=== PATIENT | female | born 1960 | race Caucasian/White ===

== ENCOUNTER → 2016-10-12 | Outpatient (CLI) | payer BC ==
--- NOTE | 2016-10-22 14:55 | MR ---
EXAMINATION TYPE: MR brain wo/w con DATE OF EXAM: 10/12/2016 6:05 PM COMPARISON: Outside MRI brain July 25, 2016 HISTORY: Tumor resection f/u TECHNIQUE: Multiplanar, multisequence images of the brain and brainstem is performed without and with IV contras t, utilizing 10 mL intravenous MultiHance . FINDINGS: Diffusion weighted images demonstrate no evidence of a recent infarct or other diffusion ab normality. There is no worrisome extra-axial fluid collection. The ventricular system and cisternal spaces are normal in size and appearance. The brain volume is age appropriate. Surgical changes fro m right frontal craniotomy are redemonstrated. Mild linear dural enhancement at this level remains pr esent. No suspicious new mass or nodular type enhancement is identified. There is persistent vasogeni c edema at level of surgery improved in appearance from outside study with resolution of edema into c orpus callosum and midline shift noted. Focal areas of low-attenuation in the periventricular white m atter are presumed on basis of product of chronic small vessel ischemic change in patient of this age . Midline structures demonstrate normal morphology. The craniocervical junction appears within normal limits. Post contrast images demonstrate no new areas of abnormal enhancement. The dural venous sinu ses appear patent. The signal bilateral mastoid air cells is now present. Tiny dependent fluid left s phenoid sinus is again seen otherwise paranasal sinuses are clear. Globes are distorted by artifact. IMPRESSION: 1. Postsurgical changes right frontal region redemonstrated. Interval improvement in edema and mass e ffect/midline shift is noted. No new suspicious enhancement is seen to suggest recurrent malignancy. 2. Possible new bilateral mastoiditis, clinical correlation advised.
== END | disposition home or self-care (01) ==
LOC: RADMRIMAIN 17:22
PROVIDERS: ATTEND Nurse Practitioner Family
DX: Z48.89 Encounter for other specified surgical aftercare (principal); Z98.890 Other specified postprocedural states
CPT/HCPCS: 70553; A9577

== ENCOUNTER → 2016-10-30 | Outpatient (CLI) | payer BC ==
--- NOTE | 2016-10-30 09:22 | CT ---
EXAMINATION TYPE: CT chest w con DATE OF EXAM: 10/30/2016 7:43 AM COMPARISON: 06/10/[address] 07/19/2016 HISTORY: 56-year-old female history of Lung CA TECHNIQUE: Contiguous axial scanning of the chest after the administration of 100 mL of Omnipaque 300 . Coronal/sagittal reconstructions performed. CT DLP: 113.2mGycm. Automatic exposure control utilized for a dose reduction. FINDINGS: Heart is normal size without pericardial effusion. Some coronary vessel calcifications are present in the remarkable for coronary artery disease. Aorta is normal caliber with mild atherosclerotic arch calcifications and bovine configuration to the aortic arch. No thoracic lymphadenopathy by CT size criteria. A small right pleural effusion at the dependent mid lung level is relatively unchanged. Adjacent foca l patchy opacity measures 2.1 x 2.6 cm versus 2.8 x 2.5 cm on 07/19/2016 and 2.7 x 2.9 cm on 06/10/2015 . However, a second area of adjacent patchy density more medially in the posterior right mid lung lucrecia ears slightly increased measuring 1.6 x 1.0 cm versus 06/10/2015 but relatively unchanged from 07/19/20 16 and continued follow-up is recommended. There is biapical pleural parenchymal scarring with mild overall centrilobular emphysema. There is so me nodular and linear pleural parenchymal scarring at the posterior right base, unchanged Chronic scarring, fibrosis, and volume loss along the medial right upper lobe and soft tissue thicken ing along the left suprahilar region likely posttreatment change. A 4 mm peripheral right upper lobe pulmonary nodule axial image 11 is new from 06/10/2015 and warrants follow-up. Visualized upper abdomen shows stable small amount of focal fat along the anterior falciform ligament and mild diffuse thickening of the left adrenal gland without discrete nodularity. Anterior splenule is also demonstrated. Bones: No osseous destructive process. IMPRESSION: 1. A small right pleural effusion posteriorly at the right midlung appears chronic as does some adjac ent patchy posterior right midlung opacity. 2. However, an adjacent nodular area of density medially measures 1.6 x 1.0 cm and appears new from , but relatively stable from 07/19/2016. This area should continue to be followed to exclude e tomas neoplasm. 3. A 4 mm right upper lobe pulmonary nodule new from 06/10/2015 should also be followed. 4. Chronic volume loss, fibrosis, and scarring in the right hilar region and medial right upper lobe likely posttreatment change.
== END | disposition home or self-care (01) ==
LOC: RADCTMAIN 06:58
PROVIDERS: ATTEND Internal Medicine Hematology & Oncology
DX: J90 Pleural effusion, not elsewhere classified (principal); J84.10 Pulmonary fibrosis, unspecified; J98.4 Other disorders of lung; C34.90 Malignant neoplasm of unspecified part of unspecified bronchus or lung; R91.1 Solitary pulmonary nodule; R91.8 Other nonspecific abnormal finding of lung field
CPT/HCPCS: 71260; Q9967

== ENCOUNTER → 2016-12-31 | Outpatient (CLI) | payer BC ==
--- NOTE | 2016-12-31 08:07 | MR ---
MRI of the brain with and without contrast HISTORY: Headaches. TECHNIQUE: T1-weighted sagittal, T2, FLAIR, and diffusion axial, postcontrast T1 axial and coronal vi ews of the brain are submitted. CONTRAST: 10 mL MultiHance FINDINGS: There is no evidence of acute ischemia. Surgical changes from right frontal craniotomy are redemonstrated. Mild linear dural enhancement at t his level remains present. No suspicious new mass or nodular type enhancement is identified. There is persistent increased signal within the right frontal lobe and evidence of encephalomalacia. Changes of chronic mastoiditis noted. Diffuse periventricular areas of abnormal signal as well as scattered focal areas may be secondary to remote microvascular ischemia. Stable dural enhancement likely postsurgical. Craniocervical junction maintained. Sella turcica has a normal appearance. No evidence of cerebellopo ntine angle mass. IMPRESSION: 1. Postsurgical change with no evidence of recurrent neoplasm. 2. Bilateral mastoiditis 3. Chronic white matter changes are stable.
== END | disposition home or self-care (01) ==
LOC: RADMRIMAIN 06:53
PROVIDERS: ATTEND Nurse Practitioner Family
DX: C79.31 Secondary malignant neoplasm of brain (principal); R90.82 White matter disease, unspecified; Z98.890 Other specified postprocedural states
CPT/HCPCS: 70553; A9577

== ENCOUNTER → 2017-01-28 | Outpatient (CLI) | payer BC ==
--- NOTE | 2017-01-28 19:04 | CT ---
EXAMINATION TYPE: CT chest w con DATE OF EXAM: 01/28/2017 6:54 PM COMPARISON: CT chest October 30, 2016 HISTORY: Lung cancer follow-up. CT DLP: 116.70 mGycm. Automated Exposure Control for Dose Reduction was Utilized. TECHNIQUE: CT scan of the thorax is performed following with IV Contrast, patient injected with 100 mL of Omnipaque 300. FINDINGS: LUNGS: Moderate underlying emphysematous change is present. There is persistent small right pleural f luid collection or effusion. There is persistent right hilar masslike consolidation or scarring with mild bronchiectasis at right hilum that is unchanged. Some more focal masslike scarring posteriorly r ight midlung is redemonstrated near axial images 37 and 38. A slightly more masslike and prominent ce ntrally and medially seen on coronal image 55 and recurrent tumor cannot be excluded. This area is sl ightly more hyperdense and measures 1.2 x 1.1 cm on axial image 38. Left lung remains clear. No pneum othorax is seen bilaterally. A 4 x 3 mm scarlike opacity right upper lung laterally on axial image 14 is stable from prior. MEDIASTINUM: There are no greater than 1 cm new hilar or mediastinal lymph nodes. Prominent but subc entimeter lymph nodes throughout the thorax are redemonstrated without significant interval change. No cardiomegaly or pericardial effusion is seen. OTHER: Mild multilevel spurring in the spine is present. IMPRESSION: Moderate emphysematous change redemonstrated. Posttreatment change right hilar level is s uspected. Increasing nodularity posteriorly right midlung however is noted worrisome for neoplastic r ecurrence. Advise PET/CT follow-up.
== END | disposition home or self-care (01) ==
LOC: RADCTMAIN 18:22
PROVIDERS: ATTEND Internal Medicine Hematology & Oncology
DX: C34.90 Malignant neoplasm of unspecified part of unspecified bronchus or lung (principal); J43.9 Emphysema, unspecified; R91.8 Other nonspecific abnormal finding of lung field
CPT/HCPCS: 71260; Q9967

== ENCOUNTER → 2017-02-15 | Outpatient (CLI) | payer BC ==
--- NOTE | 2017-02-15 11:56 | NM ---
EXAMINATION TYPE: NM thyroid image only DATE OF EXAM: 02/15/2017 11:44 AM COMPARISON: NONE HISTORY: Thyroid abnormal labs TECHNIQUE: After the intravenous administration of 10.4 mCi Tc 99m Sodium Pertechnetate. FINDINGS: No hot or cold thyroid nodule seen. IMPRESSION: Normal thyroid scan and uptake.
== END | disposition home or self-care (01) ==
LOC: RADNMMAIN 10:58
PROVIDERS: ATTEND Surgery
DX: R94.6 Abnormal results of thyroid function studies (principal); R22.1 Localized swelling, mass and lump, neck
CPT/HCPCS: 84439; 84443; 36415; 78013; A9512

== ENCOUNTER 2017-02-22 11:56 | Day surgery (SDC) | payer BC, OTHER ==
[2017-02-22 12:59] VITALS: RESP 14; TEMP 98
[2017-02-22 13:48] VITALS: BP 105/69; PULSE 91
--- NOTE | 2017-02-22 21:21 | US ---
EXAMINATION TYPE: US FNA thyroid DATE OF EXAM: 02/22/2017 1:41 PM COMPARISON: Correlation thyroid scan 02/15/2017 HISTORY: 56-year-old female thyroid nodule found while evaluating swelling of the thyroid gland. Refe rred for biopsy. FINDINGS: The heterogeneous solid isthmic nodule measuring 1.2 x 0.6 x 1.0 cm was targeted for FNA. TECHNIQUE: Maximal barrier technique was utilized. After informed consent, skin overlying the lesion was locali zed with ultrasound and the overlying skin prepped and draped. Ultrasound was utilized using sterile technique. Lidocaine was used for local anesthesia. Five passes with a 25-gauge needle were made int o the nodule and aspirated specimen was submitted to cytology. Following the procedure hemostasis ac hieved. No immediate complication. The patient discharged in stable condition. IMPRESSION: STATUS POST ULTRASOUND GUIDED FINE NEEDLE ASPIRATION OF THE THYROID ISTHMIC NODULE, PATHOLOGY IS PEND ING.
== END 2017-02-22 13:50 | disposition home or self-care (01) ==
LOC: RADPROMAIN 11:56
PROVIDERS: ATTEND Surgery
DX: E04.1 Nontoxic single thyroid nodule (principal)
CPT/HCPCS: 10022; 76942; 88173; 88305

== ENCOUNTER → 2017-03-27 | Outpatient (CLI) | payer BC ==
--- NOTE | 2017-03-28 10:03 | MR ---
EXAMINATION TYPE: MR brain wo/w con DATE OF EXAM: 03/27/2017 COMPARISON: 12/31/2016 HISTORY: Follow up from previous MRI on PACS TECHNIQUE: Multiplanar, multisequence images of the brain and brainstem is performed without and with IV contras t, utilizing 10 mL intravenous MultiHance . FINDINGS: There is no evidence of acute ischemia. Surgical changes from right frontal craniotomy are redemonstrated. Dural enhancement at this level remains present. No suspicious new mass or nodular enhancement is cookie ntified. There is persistent increased signal within the right frontal lobe and evidence of encephalomalacia. Changes of chronic mastoiditis noted. Diffuse periventricular areas of abnormal signal as well as scattered focal areas may be secondary to remote microvascular ischemia. More focal area within the left periventricular white matter and the focal area within the left basal ganglia are more pronounced on today's exam. There does appear to be a component of diffusion restri ction suggestive of subacute area of ischemia. Stable dural enhancement likely postsurgical. Craniocervical junction maintained. Sella turcica has a normal appearance. No evidence of cerebellopontine angle mass. Port call to the patient's referring clinician. IMPRESSION: 1. New focal area of abnormal signal within the white matter adjacent to the left lateral ventricle 2. Postsurgical change with no evidence of recurrent neoplasm. 3. Chronic white matter changes are stable.
== END | disposition home or self-care (01) ==
LOC: RADMRIMAIN 21:01
PROVIDERS: ATTEND Nurse Practitioner Family
DX: C79.31 Secondary malignant neoplasm of brain (principal); R93.0 Abnormal findings on diagnostic imaging of skull and head, not elsewhere classified; Z98.890 Other specified postprocedural states
CPT/HCPCS: 70553; A9577

== ENCOUNTER → 2017-04-05 | Outpatient (CLI) | payer BC ==
--- NOTE | 2017-04-05 14:25 | CT ---
EXAMINATION TYPE: CT chest w con DATE OF EXAM: 04/05/2017 COMPARISON: NONE HISTORY: Lung cancer CT DLP: 119.20 mGycm, Automated exposure control for dose reduction was used. CONTRAST: Performed injected with 100 ml mL of Omnipaque 300. TECHNIQUE: Axial images were obtained at 5 mm thick sections. Reconstructed images are reviewed on [employer] computer in the coronal plane. FINDINGS: Portion of the thyroid visualized is normal. Emphysematous changes are present. Some fibrosis in the right perihilar region. There is a minimal ri ght pleural effusion which is likely loculated. Some mass densities in the right posterior midlung me asuring 2.0 x 3.4 cm on the current examination. This exam is compared to 01/28/2017 there is some in terval thickening of this masslike area adjacent to the loculated pleural effusion. Previously, this appears to measure 1.5 x 3.5 cm. Continued monitoring is recommended. No enlarged mediastinal or hilar adenopathy is evident. The ascending aorta diameter at the level o f the main pulmonary artery is 2.7 cm. The main pulmonary artery diameter at the bifurcation is 2.[address] sections are obtained through the upper abdomen. Abdomen is essentially unremarkable. IMPRESSIONS: 1. Masslike area within the posterior right lung appears somewhat thicker than the previous examinati on although no increase in length is evident. This may be projectional at the plane of section. Kelvin nued monitoring is recommended. 2. Adjacent loculated pleural effusion.
== END | disposition home or self-care (01) ==
LOC: RADCTMAIN 11:15
PROVIDERS: ATTEND Internal Medicine Hematology & Oncology
DX: C34.90 Malignant neoplasm of unspecified part of unspecified bronchus or lung (principal); J90 Pleural effusion, not elsewhere classified
CPT/HCPCS: 71260; Q9967

== ENCOUNTER → 2017-06-21 | Outpatient (CLI) | payer BC | END | disposition home or self-care (01) | LOC: LABWHC1 16:33 | PROVIDERS: ATTEND Surgery | DX: C73 Malignant neoplasm of thyroid gland (principal) | CPT/HCPCS: 36415; 84439; 84443; 84481 ==

== ENCOUNTER 2017-08-06 07:32 | Inpatient (IN) | payer BC ==
[2017-07-26 15:54] VITALS: BMI 20.5
[~2017-08-06 07:32] MED LIST: DEXAMETHASONE SOD PHOSPHATE 10 MG/ML 1 ML VIAL IV ONE; HYDROmorphone 0.5 MG/0.5 ML SYRINGE IVP PRN; MIDAZOLAM 2 MG/2 ML VIAL IV PRN; ONDANSETRON 4 MG/2 ML VIAL IVP ONE; Pre Op ABX Message 1 EACH MISC MISCELLANE ONE; SCOPOLAMINE 1.5MG/72HR PATCH TRANSDERM ONE
[2017-08-06] MEDS ORDERED: HEPARIN SODIUM,PORCINE 5,000 UNIT/ML 1 ML VIAL SQ ONE (08:10)
[2017-08-06] MEDS: LACTATED RINGERS 1,000 ML IV SCH (08:35)
[2017-08-06] MEDS ORDERED: LIDOCAINE 1% 20 ML VIAL (10MG/ML) FOR IV START INTRADERMA ONE (08:36)
[2017-08-06] MEDS ORDERED: PROPOFOL 10 MG/ML 20 ML VIAL IV ONE (08:52)
[2017-08-06] MEDS ORDERED: MIDAZOLAM 2 MG/2 ML VIAL ONE (08:52)
[2017-08-06] MEDS ORDERED: LIDOCAINE 1% INJ 10MG/ML (20 ML MDV) ONE (08:52)
[2017-08-06] MEDS ORDERED: fentaNYL (PF) 50 MCG/ML 2 ML AMP ONE (08:52)
[2017-08-06] MEDS ORDERED: PHENYLEPHRINE-0.9% NACL SYG 1 MG/10 ML SYRINGE ONE (08:52)
[2017-08-06] MEDS ORDERED: SUCCINYLCHOLINE CHLORIDE 100 MG/5 ML SYR IV ONE (08:52)
[2017-08-06] MEDS ORDERED: SODIUM CHLORIDE 0.9% 50 ML with ceFAZolin 2,000 MG IV ONE ×2 (09:08)
[2017-08-06] MEDS ORDERED: LACTATED RINGERS 1,000 ML IV ONE (09:50)
[2017-08-06] MEDS ORDERED: THROMBIN (BOVINE) 5,000 UNIT VIAL TOPICAL ONE (10:53)
[2017-08-06] MEDS ORDERED: NALOXONE 0.4 MG/ML 1 ML VIAL IV PRN (12:00)
[2017-08-06] MEDS ORDERED: BENZOCAINE/MENTHOL LOZENG 1 EACH LOZENGE MUCOUS MEM PRN (12:00)
--- NOTE | 2017-08-06 12:00 | P.OP ---
Date of Procedure: 08/06/17 Preoperative Diagnosis: papillary lesion isthmus of the thyroid suspicious for malignancy Postoperative Diagnosis: Same Procedure(s) Performed: total thyroid resection with removal of tissue central neck Anesthesia: HEYDI Surgeon: Peri Weston Nautical Instrument Mechanic #1: Charles Virgen Estimated Blood Loss (ml): 20 IV fluids (ml): 900 Urine output (ml): 80 Pathology: other (thyroid and central compartment tissue) Condition: stable Disposition: PACU Indications for Procedure: Lesion in the isthmus suspicious for papillary carcinoma Operative Findings: enlarged thyroid, and nocule in the isthmus, completely contained, scar tissue in neck related to prior node biopsy Description of Procedure: The patient was taken to the operating room and following induction of general anesthesia, the patient was placed in the beachchair position. The neck was prepped and draped in a sterile fashion. Prior to this Nimm verve stimulator probes were placed. A collar incision was made and carried down through skin and subcutaneous tissue to the platysma. The superior platysma was divided. Superior and inferior flaps were developed. The strap muscles were then in the midline. The isthmus of the thyroid was identified. The strap muscles were adherent to the gland. There were carefully dissected free and the right lobe of the thyroid was approached. The lobe was rotated medially being careful to identify and preserve the recurrent laryngeal nerve. This was seen as well as identified using the nerve stimulator. The parathyroid on this side as well as inferior parathyroids were identified and preserved. The lobe was rotated medially onto the trachea being careful to ligate and divide the superior and inferior pole vessels as well as multiple other small vessels feeding into the gland. Again there were adhesions to the gland. Following this the left lobe of the neck was approached. The lobe was rotated medially and the inferior pole vessels were divided. The superior parathyroid was identified and was believed to be the inferior parathyroid. These were preserved. The lobe was rotated up onto the trachea being careful to identify and preserve the recurrent laryngeal nerve. The entire gland was removed. Palpation from carotid to carotid did not reveal any adenopathy of concern. Additionally patient. Palpation from the hyoid down to the sternal notch did not reveal any adenopathy of concern. The dissection was carried onto the trachea and all tissues in this area were removed. The patient tolerated the procedure in stable condition. All instrument and sponge counts were correct at the end of the case. The strap muscles were closed in the midline after a Taran drain was placed. The platysma was closed and the skin was closed using 4-0 Monocryl.
[2017-08-06] MEDS ORDERED: CALCIUM CARBONATE 500 MG CHEWABLE PO PRN (12:45)
[2017-08-06] MEDS: NICOTINE 21MG/24HR PATCH TRANSDERM SCH (14:29)
--- NOTE | 2017-08-06 14:29 | P.CONS ---
History of Present Illness - Reason for Consult COPD - History of Present Illness Patient with papillary carcinoma of thyroid, underwent parathyroidectomy being monitored for her calcium patient denied any chest pain, nausea, vomiting. Patient does have history of COPD there continues to smoke does have decreased air entry into bilateral lung winn with minimal wheezing patient was started back on her inhalational treatments. Patient denied any dysuria cough. Review of Systems REVIEW OF SYSTEMS: CONSTITUTIONAL: No fever, no malaise, no fatigue. HEENT: No recent visual problems or hearing problems. Denied any sore throat. CARDIOVASCULAR: No chest pain, orthopnea, PND, no palpitations, no syncope. PULMONARY: No shortness of breath, no cough, no hemoptysis. GASTROINTESTINAL: No diarrhea, no nausea, no vomiting, no abdominal pain. Normoactive bowel sounds. NEUROLOGICAL: No headaches, no weakness, no numbness. HEMATOLOGICAL: Denies any bleeding or petechiae. GENITOURINARY: Denies any burning micturition, frequency, or urgency. MUSCULOSKELETAL/RHEUMATOLOGICAL: Denies any joint pain, swelling, or any muscle pain. ENDOCRINE: Denies any polyuria or polydipsia. The rest of the 14-point review of systems is negative. Past Medical History Past Medical History: Cancer, COPD, CVA/TIA, Thyroid Disorder Additional Past Medical History / Comment(s): BRAIN CA 07/2016; Lung CA 12/2014, AND CURRENT REOCCURRANCE CURRENTLY; THYROID CA CURRENTLY. TIA X2 01/2017, SL DROOPING OF RT FACE; ALSO FOUND BRAIN ANEURYSM, TO BE TREATED LATER. VARICOSE VEINS. History of Any Multi-Drug Resistant Organisms: None Reported Past Surgical History: Tubal Ligation Additional Past Surgical History / Comment(s): EXC BRAIN TUMOR. HX CHEMO & RADIATION AFTER CA X2. EXC CATARACTS. LYMPH NODE BIOPSY. Past Anesthesia/Blood Transfusion Reactions: No Reported Reaction Smoking Status: Former smoker - Past Family History Father Brother(s) Family Medical History: Cancer Mother Sister(s) Family Medical History: Cancer Sister(s) Family Medical History: Pulmonary Embolus Medications and Allergies Home Medications Medication Instructions Recorded Confirmed Type Aspirin [Adult Low Dose Aspirin EC] 81 mg PO DAILY 02/08/17 08/06/17 History Atorvastatin [Lipitor] 40 mg PO DAILY 06/24/17 08/06/17 History Calcium Carbonate [Tums] 500 mg PO TID PRN 06/24/17 08/06/17 History Cyanocobalamin (Vitamin B-12) 1,000 mcg PO DAILY 06/24/17 08/06/17 History [Vitamin B-12] Albuterol Sulfate [Proair Hfa] 1 - 2 puff INHALATION Q6HR PRN 07/26/17 08/06/17 History Fluticasone/Vilanterol [Breo 1 inhalation INHALATION DAILY 07/26/17 08/06/17 History Ellipta 200-25 Mcg INH] Ipratropium/Albuterol Sulfate 1 puff INHALATION QID 07/26/17 08/06/17 History [Combivent Respimat Inhaler] Allergies Allergy/AdvReac Type Severity Reaction Status Date / Time Iodinated Contrast- Oral and Allergy Swelling Verified 08/06/17 08:26 IV Dye FACE pet scan dye Allergy FACE AND Uncoded 08/06/17 08:26 HEAD SWELLING AND HIVES Physical Exam Vitals: Vital Signs Temp Pulse Pulse Resp BP BP Pulse Ox 08/06/17 12:36 102 H 16 146/79 93 L 08/06/17 12:21 107 H 16 146/76 95 08/06/17 12:06 96.8 F L 110 H 10 L 156/85 98 08/06/17 08:33 97.9 F 98 20 135/82 99 Intake and Output 08/05/17 08/06/17 08/06/17 22:59 06:59 14:59 Intake Total 1300 Output Total 150 Balance 1150 Intake: IV 1300 Output: Urine 130 Estimated Blood Loss 20 PHYSICAL EXAMINATION: GENERAL: The patient is alert and oriented x3, not in any acute distress. Well developed, well nourished. HEENT: Neck post surgically packed Pupils are round and equally reacting to light. EOMI. No scleral icterus. No conjunctival pallor. Normocephalic, atraumatic. No pharyngeal erythema. No thyromegaly. CARDIOVASCULAR: S1 and S2 present. No murmurs, rubs, or gallops. PULMONARY: Decreased bilateral air entry and the minimal expiratory wheezing was appreciated ABDOMEN: Soft, nontender, nondistended, normoactive bowel sounds. No palpable organomegaly. MUSCULOSKELETAL: No joint swelling or deformity. EXTREMITIES: No cyanosis, clubbing, or pedal edema. NEUROLOGICAL: Gross neurological examination did not reveal any focal deficits. SKIN: No rashes. Assessment and Plan Plan: #1 COPD: With minimal exacerbation patient was started on inhalational treatments, do not believe patient will need the oral steroids at this point of time. #2 nicotine abuse: Counseling was provided and patient was started on 21 g of transdermal nicotine patch #3 hyperlipidemia #4 papillary carcinoma of thyroid for which patient underwent thyroidectomy calcium will be monitored.
[2017-08-06] MEDS: HYDROmorphone 1 MG/ML 1 ML SYRINGE IV PRN ×3 (14:34→23:52)
[2017-08-06] MEDS ORDERED: IPRATROPIUM-ALBUTEROL 3 ML NEB INHALATION SCH (16:00)
[2017-08-06] MEDS: CALCIUM CARB-VIT D 500MG-200UN 1 EACH TAB PO SCH (18:05)
[2017-08-06] MEDS: SYMBICORT 160-4.5 MCG INHALER INHALATION SCH (20:36)
[2017-08-06] MEDS: IPRATROPIUM-ALBUTEROL 3 ML NEB INHALATION SCH (20:39)
[2017-08-06] MEDS: ONDANSETRON 4 MG/2 ML VIAL IVP PRN (21:15)
[2017-08-06] MEDS: HEPARIN SODIUM,PORCINE 5,000 UNIT/ML 1 ML VIAL SQ SCH (21:22)
[2017-08-06] MEDS: DEXTROSE 5%-0.45% NACL 1,000 ML IV SCH (21:25)
[2017-08-07] MEDS: HYDROmorphone 1 MG/ML 1 ML SYRINGE IV PRN ×3 (02:50→09:15)
[2017-08-07] MEDS: ONDANSETRON 4 MG/2 ML VIAL IVP PRN (05:41)
[2017-08-07] MEDS: DEXTROSE 5%-0.45% NACL 1,000 ML IV SCH (07:18)
[2017-08-07] MEDS: LACTATED RINGERS 1,000 ML IV SCH (07:20)
[2017-08-07] MEDS: IPRATROPIUM-ALBUTEROL 3 ML NEB INHALATION SCH ×3 (07:50→16:37)
[2017-08-07] MEDS: SYMBICORT 160-4.5 MCG INHALER INHALATION SCH (07:50)
[2017-08-07] MEDS: HEPARIN SODIUM,PORCINE 5,000 UNIT/ML 1 ML VIAL SQ SCH (08:04)
[2017-08-07] MEDS: CALCIUM CARB-VIT D 500MG-200UN 1 EACH TAB PO SCH (08:04)
[2017-08-07 08:58] VITALS: BP 110/66; RESP 20; TEMP 98.1
[2017-08-07] MEDS ORDERED: ATORVASTATIN 40 MG TAB PO SCH (09:00)
[2017-08-07] MEDS ORDERED: ASPIRIN 81 MG PO SCH (09:00)
--- NOTE | 2017-08-07 11:51 | P.DS ---
Providers Date of admission: 08/06/17 14:27 Expected date of discharge: 08/07/17 Attending physician: Peri Weston Consults: 08/06/17 12:02 Consult Physician Routine Consulting Provider: Dari Jacob Consult Reason/Comments: medical managment Do you want consulting provider notified?: Yes 08/06/17 12:07 Consult Physician Routine Consulting Provider: Sayra Forte Consult Reason/Comments: Total thyroidectomy, medical management Do you want consulting provider notified?: Yes Primary care physician: [facility] Course: 57-year-old female presented on August 06 undergo an elective total thyroid resection with removal of tissue central neck for papillary lesion isthmus of the thyroid suspicious for malignancy. There were no postop events. Calcium level on the day of discharge 9.1. Patient has a history of COPD continues to smoke but there was no evidence of an acute exacerbation. Lungs were clear. On room air. No facial numbness no tingling to the arms or legs no change in voice. Patient was felt to be appropriate to be discharged home Impression discharge diagnosis COPD with no evidence of an exacerbation Active every day smoker Hyperlipidemia Lesion in the isthmus suspicious for papillary carcinoma total thyroid resection with removal of tissue central neck done on 08/06/2017 The above impression and plan of care have been discussed and directed by signing physician. Marlyn Gutiérrez nurse practitioner acting as scribe for signing physician. Plan - Discharge Summary New Discharge Prescriptions: New Calcium Carb-Vit D 500Mg-200Un [Oscal 500+D] 2 each PO TID-W/MEALS #90 tab HYDROcodone/APAP 5-325MG [Hallowell 5-325] 1 tab PO Q4HR PRN #20 tab PRN Reason: Mild Breakthrough Pain Continue Calcium Carbonate [Tums] 500 mg PO TID PRN PRN Reason: Heartburn No Action Aspirin [Adult Low Dose Aspirin EC] 81 mg PO DAILY Atorvastatin [Lipitor] 40 mg PO DAILY Cyanocobalamin (Vitamin B-12) [Vitamin B-12] 1,000 mcg PO DAILY Albuterol Sulfate [Proair Hfa] 1 - 2 puff INHALATION RT-Q6H PRN PRN Reason: Shortness Of Breath Ipratropium/Albuterol Sulfate [Combivent Respimat Inhaler] 1 puff INHALATION RT-QID Fluticasone/Vilanterol [Breo Ellipta 200-25 Mcg INH] 1 inhalation INHALATION RT-DAILY Discharge Medication List Aspirin [Adult Low Dose Aspirin EC] 81 mg PO DAILY 02/08/17 [History] Atorvastatin [Lipitor] 40 mg PO DAILY 06/24/17 [History] Calcium Carbonate [Tums] 500 mg PO TID PRN 06/24/17 [History] Cyanocobalamin (Vitamin B-12) [Vitamin B-12] 1,000 mcg PO DAILY 06/24/17 [ History] Albuterol Sulfate [Proair Hfa] 1 - 2 puff INHALATION RT-Q6H PRN 07/26/17 [ History] Fluticasone/Vilanterol [Breo Ellipta 200-25 Mcg INH] 1 inhalation INHALATION RT- DAILY 07/26/17 [History] Ipratropium/Albuterol Sulfate [Combivent Respimat Inhaler] 1 puff INHALATION RT- QID 07/26/17 [History] Calcium Carb-Vit D 500Mg-200Un [Oscal 500+D] 2 each PO TID-W/MEALS #90 tab 08/07 [Rx] HYDROcodone/APAP 5-325MG [Hallowell 5-325] 1 tab PO Q4HR PRN #20 tab 08/07/17 [Rx] Follow up Appointment(s)/Referral(s): Peri Weston MD [STAFF PHYSICIAN] - 1 Week Sayra Forte MD [STAFF PHYSICIAN] - 1 Week Activity/Diet/Wound Care/Special Instructions: Smoking cessation information provided patient's been advised to stop smoking cigarettes Dressing to the neck can be removed and [address] andrade of any increased drainage at surgical site or any fever chills. Notify dr andrade if there is any change in voice numbness to the face hands or legs May shower in 72 hours No heavy lifting over 4 pounds until seen in the follow-up visit with Dr. Andrade Discharge Disposition: HOME SELF-CARE
[2017-08-07 12:03] VITALS: PULSE 106
[2017-08-07] MEDS: NICOTINE 21MG/24HR PATCH TRANSDERM SCH (14:24)
== END 2017-08-07 14:10 | disposition home or self-care (01) | DRG 626 ==
LOC: OR 07:32 → 6PED 11:58 → OR 14:26 → 6PED 14:27
PROVIDERS: ADMIT Surgery; ATTEND Surgery
PROC: 0GTK0ZZ Resection of Thyroid Gland, Open Approach (ICD-10-PCS; principal; 2017-08-06 08:45)
PROC: 07T20ZZ Resection of Left Neck Lymphatic, Open Approach (ICD-10-PCS; principal; 2017-08-06 08:45)
DX: C73 Malignant neoplasm of thyroid gland (principal); C79.31 Secondary malignant neoplasm of brain; J44.9 Chronic obstructive pulmonary disease, unspecified; F17.200 Nicotine dependence, unspecified, uncomplicated; Z79.82 Long term (current) use of aspirin; Z79.899 Other long term (current) drug therapy; Z85.118 Personal history of other malignant neoplasm of bronchus and lung; Z80.1 Family history of malignant neoplasm of trachea, bronchus and lung; Z91.041 Radiographic dye allergy status; E78.5 Hyperlipidemia, unspecified; Z86.73 Personal history of transient ischemic attack (TIA), and cerebral infarction without residual deficits
CPT/HCPCS: 82310; 88307; 94640

== ENCOUNTER → 2017-08-14 | Outpatient (CLI) | payer BC | END | disposition home or self-care (01) | LOC: LABWHC1 14:48 | PROVIDERS: ATTEND Internal Medicine Endocrinology, Diabetes & Metabolism | DX: C73 Malignant neoplasm of thyroid gland (principal) | CPT/HCPCS: 36415; 84432; 84439; 84443; 86800 ==

== ENCOUNTER → 2017-10-09 | Outpatient (CLI) | payer BC ==
--- NOTE | 2017-10-09 13:15 | CT ---
EXAMINATION TYPE: CT chest w con DATE OF EXAM: 10/09/2017 COMPARISON: NONE HISTORY: Lung cancer CT DLP: 147.2 mGycm, Automated exposure control for dose reduction was used. CONTRAST: Performed injected with 100 mL of Omnipaque 300. TECHNIQUE: Axial images were obtained at 5 mm thick sections. Reconstructed images are reviewed on [employer] computer in the coronal plane. FINDINGS: Thyroid is poorly visualized. There is a 0.5 cm spiculated density extending to the pleural margin in the posterior lateral right u pper lobe. This appears somewhat larger than previous examination. Series 4 image 14. Groundglass opacities in the anterior medial right middle lobe. Series 4 image 27. There is a 3.6 x 2.9 cm density within the azygoesophageal recess in the infrahilar region. The infer ior portion of this has spiculation compatible with neoplasm. This is larger than the previous measur ements of 2.0 x 3.4 cm. There is a 1.0 x 0.6 cm irregular density along the major fissure periphery in the posterior lateral right lower lung field. Series 4 image 45. There is enlargement of a pleural-based nodule in the posterior left midlung currently measuring 0.9 x 1.1 cm, series 4 image 33. Emphysematous changes present. No enlarged mediastinal or hilar adenopathy is evident. The ascending aorta diameter at the level o f the main pulmonary artery is 2.8 cm. The main pulmonary artery diameter at the bifurcation is 2.[address] sections are obtained through the upper abdomen. Abdomen is essentially unremarkable. IMPRESSIONS: 1. Enlarging mass azygoesophageal recess region. 2. Enlarging nodule posterior lateral left midlung. 3. Enlarging irregular nodules right lower lobe and right apex periphery.
== END | disposition home or self-care (01) ==
LOC: RADCTMAIN 11:59
PROVIDERS: ATTEND Internal Medicine Hematology & Oncology
DX: R91.8 Other nonspecific abnormal finding of lung field (principal); K22.8 Other specified diseases of esophagus; C34.90 Malignant neoplasm of unspecified part of unspecified bronchus or lung
CPT/HCPCS: 71260; Q9967

== ENCOUNTER → 2017-11-14 | Outpatient (CLI) | payer BC | END | disposition home or self-care (01) | LOC: LABWHC1 16:51 | PROVIDERS: ATTEND Internal Medicine Endocrinology, Diabetes & Metabolism | DX: C73 Malignant neoplasm of thyroid gland (principal) | CPT/HCPCS: 36415; 84443 ==

== ENCOUNTER → 2017-11-30 | Outpatient (CLI) | payer BC ==
--- NOTE | 2017-12-02 18:14 | PE ---
EXAMINATION TYPE: PET CT fusion skull to thigh DATE OF EXAM: 11/30/2017 COMPARISON: CT chest 10/09/2017 Prior PET/CT: None available at this location in PACs or [facility]. HISTORY: Lung cancer TECHNIQUE: Following the intravenous administration of 14.364 mCi of F-18 FDG, whole body images are performed from the skull base to the midthigh. Images are reviewed on the computer in the coronal, axial, and sagittal planes. Reconstructed rotating images are created on independent workstation and reviewed on the computer. A localization and attenuation correction CT is performed in conjunction with the PET scan. DLP: 232.10 mGycm SCAN: Ordered as subsequent Blood glucose: 68 mg/dL Average Mediastinum SUV: 1.64 Average Liver SUV: 2.13 FINDINGS: NECK: No abnormal uptake THORAX: There is a subtle focus of increased radiotracer accumulation within SUV value 1.07 in the posterior lateral right upper lobe. PET image 21. This could be inflammatory. Early neoplastic process is not e xcluded. There is a posterior left lung peripheral area of uptake with an SUV of 1.64. PET image 102 There is a large radiotracer accumulation in the Azygoesophageal right recess. This has a SUV value o f 10.92 compatible with neoplasm.. PET image 106 There is a focus of radiotracer accumulation within the posterior right lung base. This has an SUV va lue of 0.77. PET image 116. ABDOMEN: No abnormal uptake PELVIS: No abnormal uptake OSSEOUS STRUCTURES: No abnormal uptake LOCALIZATION CT: Ascending thoracic aorta at the level the main pulmonary artery is 3.1 cm. The main pulmonary artery the bifurcation is 2.2 cm. Small right pleural effusion is likely present. There is a nodular density measuring 1.0 cm in the posterior lateral right lung base. Lung mass posterior med ial right lung on the current mediastinal windows is estimated to measure 2.9 x 3.2 cm. The left post erior lateral peripheral nodule measures 0.9 cm. Diverticulosis is noted through the sigmoid colon. COMPARISON: The as ago esophageal recess mass may be slightly smaller than 10/09/2017. The right lower lobe nodule is larger. Remaining left lung nodule is stable. IMPRESSION: 1. Marked increased uptake of radiotracer within the posterior medial right midlung mass compatible w ith neoplasm. 2. Probable metastatic lesion posterior left peripheral lung. 3. Small nodule posterior lateral right lung base of intermediate radiotracer accumulation. Additiona l subtle area of uptake within the posterior lateral right apex with intermediate uptake. These could be inflammatory or early metastatic disease.
== END | disposition home or self-care (01) ==
LOC: RADPETMAIN 13:54
PROVIDERS: ATTEND Internal Medicine Hematology & Oncology
DX: C34.91 Malignant neoplasm of unspecified part of right bronchus or lung (principal)
CPT/HCPCS: 78815; A9552

== ENCOUNTER → 2018-02-25 | Outpatient (CLI) | payer BC ==
--- NOTE | 2018-02-25 11:33 | CT ---
EXAMINATION TYPE: CT brain wo con DATE OF EXAM: 02/25/2018 COMPARISON: CT 07/18/2016 and MRI 03/27/2017 HISTORY: 57-year-old female, sudden visual loss bilateral, Visual disturbance TECHNIQUE: Examination was done in axial plane without intravenous contrast. Coronal and sagittal r econstructions performed. CT DLP: 995.50 mGycm Automated exposure control for dose reduction was used. FINDINGS: Right frontal craniotomy flap. Underlying resection changes. Severe confluent white matter hypodensit ies may relate to whole brain radiation therapy change. There is a lobulated area of heterogeneous soft tissue density along the floor of the anterior crania l fossa straddling the midline, right greater than left measuring approximately 4.6 cm wide and 5.2 c m AP. There is associated left subfalcine herniation. 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 No effacement of basal subarachnoid cisterns. No hydrocephalus or evidence for acute intracranial hem orrhage. Air-fluid level left sphenoid sinus. Orbits and globes are intact. IMPRESSION: 1. Findings suspicious for an approximated 5.2 cm neoplastic recurrence along the floor of the anteri or cranial fossa, right greater than left with some associated leftward subfalcine herniation. This h as some mass effect onto the optic chiasm. 2. Extensive confluent white matter hypodensities may relate to posttreatment changes after whole bra in radiation. Clinically correlate.
== END | disposition home or self-care (01) ==
LOC: RADCTMAIN 10:43
PROVIDERS: ATTEND Physician Assistant
DX: R90.89 Other abnormal findings on diagnostic imaging of central nervous system (principal); R26.81 Unsteadiness on feet; H53.133 Sudden visual loss, bilateral
CPT/HCPCS: 70450

== ENCOUNTER → 2018-10-16 | Outpatient (CLI) | payer BC ==
--- NOTE | 2018-10-16 14:51 | CT ---
EXAMINATION TYPE: CT ChestAbdPelvis wo con DATE OF EXAM: 10/16/2018 COMPARISON: PET/CT 11/30/2017" and CT chest 04/05/2017 HISTORY: 58-year-old female Lung Cancer, Observe for Mets TECHNIQUE: Contiguous axial scanning of the chest, abdomen, and pelvis without IV contrast. Coronal a nd sagittal reconstructions performed. CT DLP: 454.30 mGycm Automated exposure control for dose reduction was used. FINDINGS: CHEST: Heart normal size with small pericardial fluid localized to the anterior aspect and cardiac apex louie uring up to 8 mm anteriorly. Aorta normal caliber with mild atherosclerotic arch calcifications and bovine configuration to the ao rtic arch. New masslike area of subpleural consolidation posterior right upper lobe measuring 3.2 cm. Also new are 4 3 to 4 mm pulmonary nodules in the right mid and lower lung. A 7 mm posterior basilar pulmonary nodule is unchanged, likely postinflammatory. Stable soft tissue thickening at the right hilum extending down into the right infrahilar region 2 ma sslike area of consolidation and with adjacent small effusion, relatively unchanged from 11/30/2017. Subpleural pulmonary nodule posterior left lower lobe has increased in size now measuring 1.3 cm vers us 9 mm, previously. There are 2 new pulmonary nodules in the left mid and lower lung measure 4 mm. ABDOMEN: Lack of IV contrast limits assessment of the solid abdominal viscera, lymph nodes, and vascular struc tures. Allowing for this limitation, noncontrast appearance of the liver, gallbladder, adrenal glands, kidne ys, spleen with tiny inferior and small anterior splenule's, and pancreas show no gross abnormal body . Mild to moderate atherosclerotic calcifications in the abdominal aorta. No dilated small bowel, free fluid, or free air. Normal appendix. Scattered mild stool burden. Sigmoid diverticulosis. No pericolonic inflammatory sherrie nge. Mild rectus diastases at the periumbilical level. Pelvis: Bladder partially urine distended. There is bulging laxity of the levator ani musculature suggesting pelvic floor relaxation and multiple pelvic phleboliths. Uterus and ovaries are visualized. Fat-conta ining right inguinal hernia. No abnormal fluid collection in the pelvis or pelvic lymphadenopathy. Bones: Degenerative disc disease lower thoracic spine. No osseous destructive process seen. IMPRESSION: 1. FINDINGS SUGGEST DISEASE PROGRESSION WITH APPROXIMATELY 2 NEW PULMONARY NODULES ON THE LEFT (MEASU RING 4 MM), FOUR NEW PULMONARY NODULES ON THE RIGHT (MEASURING 3 TO 4 MM), AND ENLARGING LEFT LOWER L OBE PULMONARY NODULE (1.3 CM VERSUS 9 MM, PREVIOUSLY). 2. NEW MASSLIKE AREA OF CONSOLIDATION POSTERIOR RIGHT UPPER LOBE MEASURING 3.2 CM. THIS COULD REPRESE NT FOCAL PNEUMONIA OR A LARGE PULMONARY METASTASIS. 3. RELATIVELY SIMILAR APPEARANCE ( COMPARED TO 11/30/2017) TO THE RIGHT HILAR SOFT TISSUE THICKENING EXTENDING DOWN ALONG THE RIGHT INFRAHILAR REGION WITH MASSLIKE CONSOLIDATION IN THE RIGHT LOWER LOBE . RESIDUAL UNDERLYING NEOPLASM WOULD BE DIFFICULT TO EXCLUDE THIS AREA WAS NOTED TO BE HYPERMETABO LIC ON THE PATIENT'S 11/30/2017 PET/CT. AGAIN, NO SIGNIFICANT CHANGE IN ITS OVERALL APPEARANCE. 4. VERY SMALL PERICARDIAL EFFUSION AND STABLE SMALL RIGHT PLEURAL EFFUSION. 5. INCIDENTAL: COPD, SIGMOID DIVERTICULOSIS, PELVIC FLOOR RELAXATION, FAT-CONTAINING RIGHT INGUINAL H ERNIA.
== END | disposition home or self-care (01) ==
LOC: RADCTMAIN 13:25
PROVIDERS: ATTEND Internal Medicine Hematology & Oncology
DX: C34.90 Malignant neoplasm of unspecified part of unspecified bronchus or lung (principal); I31.3 Pericardial effusion (noninflammatory); J90 Pleural effusion, not elsewhere classified
CPT/HCPCS: 71250; 74176

== ENCOUNTER 2018-11-11 04:11 | Emergency (ER) | payer BC ==
[2018-11-11 04:15] LABS: Glucose,Whole Blood 131 mg/dL (75-99)
[2018-11-11 04:20] VITALS: TEMP 98.5
--- NOTE | 2018-11-11 05:01 | CT ---
EXAM: CT Head Without Intravenous Contrast CLINICAL HISTORY: ITS.REASON CT Reason: Pain TECHNIQUE: Axial computed tomography images of the head/brain without intravenous contrast. CTDI is 45 mGy and DLP is 1088 mGy-cm. This CT exam was performed using one or more of the following dose reduction techniques: automated exposure control, adjustment of the mA and/or kV according to patient size, and/or use of iterative reconstruction technique. COMPARISON: No relevant prior studies available. FINDINGS: Brain: No hemorrhage or mass effect. Right greater than left frontal lobe encephalomalacia. Chronic microvascular ischemic changes. Prior infarct in the left basal ganglia. Ventricles: No hydrocephalus. Moderate cerebral volume loss. Bones/joints: Unremarkable. Soft tissues: Unremarkable. Sinuses: Frothy secretion in the left sphenoid sinus. Mild mucosal thickening of the maxillary and ethmoid sinuses.. Mastoid air cells: Clear. IMPRESSION: No acute hemorrhage, hydrocephalus, or mass effect. Evidence of prior traumatic brain injury. Air-fluid level in the left sphenoid sinus, correlate with sinusitis. EXAM: CT Cervical Spine Without Intravenous Contrast CLINICAL HISTORY: ITS.REASON CT Reason: Pain TECHNIQUE: Axial computed tomography images of the cervical spine without intravenous contrast. CTDI is 10 mGy and DLP is 342 mGy-cm. This CT exam was performed using one or more of the following dose reduction techniques: automated exposure control, adjustment of the mA and/or kV according to patient size, and/or use of iterative reconstruction technique. COMPARISON: No relevant prior studies available. FINDINGS: Vertebrae: No acute fracture. Discs/spinal canal/neural foramina: No acute findings. Mild spinal canal stenosis at C5-6 secondary to degenerative changes. Multilevel degenerative disease. Soft tissues: 3.2 cm oblong opacity in the right upper lobe. Mild emphysema. IMPRESSION: No acute fracture or subluxation. 3.2 cm opacity in the right upper lobe. Given underlying emphysema, recommend chest CT with contrast for better characterization to rule out infection versus neoplastic process.
--- NOTE | 2018-11-11 05:02 | XR ---
EXAM: XR Chest, 1 View CLINICAL HISTORY: ITS.REASON XR Reason: altered mental status TECHNIQUE: Frontal view of the chest. COMPARISON: No relevant prior studies available. IMPRESSION: Normal heart size. Linear opacity in the right lower lobe, possibly infectious or atelectatic in process. There is also oblong opacity in the right upper lobe. Recommend chest CT.
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
[2018-11-11 05:51] LABS: ABG Base Excess 3.7 mmol/L; ABG HCO3 28 mmol/L (21-25); ABG Oxygen Saturation 94.2 % (94-97); ABG PCO2 40 mmHg (35-45); ABG PH 7.45 (7.35-7.45); ABG PO2 65 mmHg (83-108); ABG TCO2 29 mmol/L (19-24)
[2018-11-11 06:16] LABS: ALT 58 U/L (9-52); AST 136 U/L (14-36); Albumin 3.8 g/dL (3.5-5.0); Alkaline Phosphatase 106 U/L (38-126); Anion Gap 7 mmol/L; Blood Urea Nitrogen 19 mg/dL (7-17); Calcium 8.8 mg/dL (8.4-10.2); Carbon Dioxide 25 mmol/L (22-30); Chloride 104 mmol/L (98-107); Glucose 125 mg/dL (74-99); Potassium 3.9 mmol/L (3.5-5.1); Sodium 136 mmol/L (137-145); Total Protein 6.4 g/dL (6.3-8.2)
[2018-11-11 06:18] LABS: Appearance,Urine Cloudy (Clear); Bacteria,Urine Many /hpf; Bilirubin,Urine Negative (Negative); Blood,Urine Small (Negative); Color,Urine Yellow; Glucose,Urine (UA) Negative (Negative); Ketones,Urine 1+ (Negative); Leukocyte Esterase,Urine Trace (Negative); Mucus,Urine Rare /hpf; Nitrite,Urine Positive (Negative); PH, Urine 5.5 (5.0-8.0); Protein,Urine 1+ (Negative); Specific Gravity,Urine 1.017 (1.001-1.035); Urobilinogen,Urine <2.0 mg/dL (<2.0)
[2018-11-11 06:34] LABS: Amphetamine Screen,Urine Not Detected (NotDetected); Barbiturate Screen,Urine Not Detected (NotDetected); Benzodiazepines Screen,Urine Not Detected (NotDetected); Cocaine Screen,Urine Not Detected (NotDetected); Methadone Screen, Urine Not Detected (NotDetected); Opiate Screen,Urine Not Detected (NotDetected); Oxycodone Screen, Urine Not Detected (NotDetected); Phencyclidine Screen,Urine Not Detected (NotDetected); Tricyclic Antidepressant,Urine Not Detected (NotDetected); Urn Cannabinoid Scrn Not Detected (NotDetected)
[2018-11-11 06:52] VITALS: BP 129/80; PULSE 111; RESP 17
[2018-11-11 06:52] LABS: Troponin I 0.041 ng/mL (0.000-0.034)
[2018-11-11 07:40] LABS: Basophils % (A) 0 %; Eosinophils % (A) 0 %; HCT 43.6 % (34.0-46.0); HGB 14.1 gm/dL (11.4-16.0); Lymphocytes # (A) 0.9 k/uL (1.0-4.8); Lymphocytes % (A) 6 %; MCH 29.2 pg (25.0-35.0); MCHC 32.3 g/dL (31.0-37.0); MCV 90.5 fL (80.0-100.0); Monocytes # (A) 0.7 k/uL (0-1.0); Monocytes % (A) 5 %; Neutrophils # (A) 14.3 k/uL (1.3-7.7); Neutrophils % (A) 88 %; Platelet Count 258 k/uL (150-450); RBC 4.82 m/uL (3.80-5.40); RDW 15.3 % (11.5-15.5); WBC 16.2 k/uL (3.8-10.6)
[2018-11-11 07:42] LABS: Partial Thromboplastin Time 23.2 sec (22.0-30.0); Prothrombin Time 10.6 sec (9.0-12.0)
== END 2018-11-11 07:22 | disposition other institution (70) ==
LOC: EDBD → EC 04:11 → MERGE 04:11 → EC 07:22
DX: R41.82 Altered mental status, unspecified (principal); R00.0 Tachycardia, unspecified; T20.00XA Burn of unspecified degree of head, face, and neck, unspecified site, initial encounter; T22.051A Burn of unspecified degree of right shoulder, initial encounter; T31.0 Burns involving less than 10% of body surface; H57.89 Other specified disorders of eye and adnexa; R06.2 Wheezing; R47.01 Aphasia; F17.200 Nicotine dependence, unspecified, uncomplicated; Z85.9 Personal history of malignant neoplasm, unspecified; Z86.69 Personal history of other diseases of the nervous system and sense organs; X08.8XXA Exposure to other specified smoke, fire and flames, initial encounter
CPT/HCPCS: 36415; 36600; 70450; 71045; 72125; 80053; 80306; 81001; 82140; 82550; 82553; 82805; 83605; 84484; 85025; 85610; 85730; 87040; 87086; 93005; 99285

== ENCOUNTER 2018-11-24 01:36 | Emergency (ER) | payer BC ==
[2018-11-24 01:47] VITALS: RESP 16; TEMP 99.3
[2018-11-24 02:31] LABS: Anisocytosis Slight; Basophils % (A) 0 %; Eosinophils % (A) 0 %; HCT 31.5 % (34.0-46.0); Lymphocytes # (A) 1.4 k/uL (1.0-4.8); Lymphocytes % (A) 12 %; MCH 29.5 pg (25.0-35.0); MCHC 33.3 g/dL (31.0-37.0); MCV 88.6 fL (80.0-100.0); Mean Platelet Volume 7.3; Monocytes # (A) 0.5 k/uL (0-1.0); Monocytes % (A) 4 %; Neutrophils # (A) 9.5 k/uL (1.3-7.7); Neutrophils % (A) 82 %; Platelet Count 386 k/uL (150-450); RBC 3.56 m/uL (3.80-5.40); RDW 17.4 % (11.5-15.5); WBC 11.6 k/uL (3.8-10.6)
[2018-11-24 02:38] LABS: ALT 44 U/L (9-52); AST 32 U/L (14-36); Albumin 3.2 g/dL (3.5-5.0); Alkaline Phosphatase 64 U/L (38-126); Anion Gap 8 mmol/L; Blood Urea Nitrogen 22 mg/dL (7-17); Calcium 8.2 mg/dL (8.4-10.2); Carbon Dioxide 23 mmol/L (22-30); Chloride 105 mmol/L (98-107); Glucose 170 mg/dL (74-99); Potassium 4.2 mmol/L (3.5-5.1); Sodium 136 mmol/L (137-145); Total Bilirubin 0.8 mg/dL (0.2-1.3); Total Protein 5.8 g/dL (6.3-8.2)
[2018-11-24 02:40] LABS: Creatine Kinase 67 U/L (30-135)
[2018-11-24 02:41] LABS: HGB 10.5 gm/dL (11.4-16.0)
--- NOTE | 2018-11-24 02:41 | XR ---
EXAM: XR Chest, 1 View CLINICAL HISTORY: Trauma TECHNIQUE: Frontal view of the chest. COMPARISON: 11/11/2018 FINDINGS: Lungs: No focal consolidation. Pleural space: No large pleural effusion or pneumothorax. Heart: The cardiac silhouette is within normal limits. Mediastinum: No evidence for mediastinal widening or significant alteration from previous exam. The trachea is midline. Bones/joints: No definite acute osseous traumatic injury is seen. IMPRESSION: No radiographic evidence for significant acute traumatic injury to the chest/thorax. If there is focal rib tenderness, dedicated rib series may be helpful.
--- NOTE | 2018-11-24 02:43 | XR ---
EXAM: XR Pelvis, 1 or 2 Views CLINICAL HISTORY: Trauma TECHNIQUE: Frontal view of the pelvis. COMPARISON: No relevant prior studies available. FINDINGS: Bones/joints: The pelvic bones appear intact. The femoral heads overlie the acetabula in the frontal projection bilaterally. No acute fracture. No dislocation. Soft tissues: Unremarkable. IMPRESSION: No acute osseous traumatic injury identified involving the pelvis.
[2018-11-24 02:45] LABS: INR 0.9 (<1.2); Partial Thromboplastin Time 22.1 sec (22.0-30.0)
[2018-11-24 02:50] LABS: Appearance,Urine Cloudy (Clear); Bilirubin,Urine Negative (Negative); Blood,Urine Negative (Negative); Calcium Oxalate Crystals,Urine Moderate /hpf; Color,Urine Yellow; Glucose,Urine (UA) Trace (Negative); Ketones,Urine Negative (Negative); Leukocyte Esterase,Urine Moderate (Negative); Mucus,Urine Rare /hpf; Nitrite,Urine Negative (Negative); PH, Urine 6.5 (5.0-8.0); Protein,Urine Trace (Negative); RBC,Urine 2 /hpf (0-5); Specific Gravity,Urine 1.023 (1.001-1.035); Squamous Epithelial Cell,Urine 5 /hpf (0-4); WBC,Urine 24 /hpf (0-5)
--- NOTE | 2018-11-24 02:52 | ED ---
Fall HPI - General Chief Complaint: Fall Stated Complaint: Fall Time Seen by Provider: 11/24/18 01:44 Source: patient Mode of arrival: EMS - History of Present Illness Initial Comments: is a 58-year-old female with a history of metastatic cancer who [facility] resides in a [facility]. She presents the ED today via EMS after a fall at the [facility] facility. Per the patient she fell earlier in the day and struck the right side of her head. She then went about the rest of her day. She was in bed asleep when EMS arrived. EMS reports that initially they were advised that the patient had a witnessed fall earlier in the night however upon their arrival they were told by the nurse that the fall was unwitnessed. Patient does not recall specifically tripping or whether there is mechanical nature of the fall. She denies any chest pain or shortness of breath. Patient expresses significant frustration that she is here in the emergency department as she was in bed going to sleep when EMS arrived. - Related Data Home Medications Medication Instructions Recorded Confirmed Aspirin [Adult Low Dose Aspirin EC] 81 mg PO DAILY 02/08/17 02/21/18 Calcium Carbonate [Tums] 500 mg PO TID PRN 06/24/17 02/21/18 Cyanocobalamin (Vitamin B-12) 1,000 mcg PO DAILY 06/24/17 02/21/18 [Vitamin B-12] Albuterol Sulfate [Proair Hfa] 1 - 2 puff INHALATION RT-Q6H PRN 07/26/17 Fluticasone/Vilanterol [Breo 1 inhalation INHALATION RT-DAILY 07/26/17 02/21/18 Ellipta 200-25 Mcg INH] Ipratropium/Albuterol Sulfate 1 puff INHALATION RT-QID 07/26/17 02/21/18 [Combivent Respimat Inhaler] Previous Rx's Medication Instructions Recorded Calcium Carb-Vit D 500Mg-200Un 2 each PO TID-W/MEALS #90 tab 08/07/17 [Oscal 500+D] Nitrofurantoin Monohyd/M-Cryst 100 mg PO Q12HR #10 cap 11/24/18 [Macrobid] Allergies Allergy/AdvReac Type Severity Reaction Status Date / Time Iodinated Contrast- Oral and Allergy Rash/Hives Unverified 11/24/18 04:13 IV Dye pet scan dye Allergy FACE AND Uncoded 11/24/18 04:13 HEAD SWELLING AND HIVES Review of Systems ROS Statement: Those systems with pertinent positive or pertinent negative responses have been documented in the HPI. ROS Other: All systems not noted in ROS Statement are negative. Past Medical History Past Medical History: Cancer, COPD, CVA/TIA, GERD/Reflux Additional Past Medical History / Comment(s): Lung CA, CA THYROID. TIA 2016. VARICOSE VEINS. 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 EXC CATARACTS. LYMPH NODE BIOPSY. Thyroidectomy 2016 Past Anesthesia/Blood Transfusion Reactions: No Reported Reaction Past Psychological History: No Psychological Hx Reported Past Alcohol Use History: None Reported, Unable to Obtain Past Drug Use History: None Reported, Unable to Obtain - Past Family History Mother Family Medical History: Cancer Father Family Medical History: Cancer Brother(s) Family Medical History: Cancer Sister(s) Family Medical History: Cancer Father Brother(s) Family Medical History: Cancer Mother Sister(s) Family Medical History: Cancer General Exam - General Exam Comments Initial Comments: Physical Exam GENERAL: Chronically ill-appearing female who appears much older than stated age HENT: Contusion to right forehead EYES: PERRL, EOMI PULMONARY: Wet cough, unlabored respirations CARDIOVASCULAR: There is a regular rate and rhythm without any murmurs gallops or rubs. ABDOMEN: Soft and nontender with normal bowel sounds. SKIN: Pale , contusion of forehead as noted above Senile purpura bilateral upper extremities : Deferred NEUROLOGIC: Oriented to person, able to identify that she is at the hospital. Recalls falling but not event surrounding the fall. First rated that she is here. MUSCULOSKELETAL: Normal extremities with adequate strength and full range of motion. No lower extremity swelling or edema. No calf tenderness. PSYCHIATRIC: Agitated Limitations: no limitations Limitations: no limitations Course Vital Signs 11/24/18 11/24/18 01:37 04:09 Temperature 99.3 F Pulse Rate 110 H 106 H Respiratory 16 16 Rate Blood Pressure 135/96 109/67 O2 Sat by Pulse 96 96 Oximetry Medical Decision Making - Medical Decision Making Patient was seen and evaluated history is obtained from patient. Patient is somewhat agitated, somewhat confused, she recalls that she fell doesn't recall if it was a syncopal episode or mechanical, she is aware that she has cancer she is uncertain of the type or the location she is uncertain if she is undergoing therapy Patient is agreeable to a trauma workup Workup revealed no acute traumatic injuries Urinalysis did reveal urinary tract infection first dose was given in the emergency department and patient will be discharged home on Macrobid Patient was updated on findings and discharged back to [facility] - Lab Data Result diagrams: 11/24/18 02:00 11/24/18 02:00 Lab Results 11/24/18 11/24/18 11/24/18 Range/Units 02:00 02:00 02:00 WBC 11.6 H (3.8-10.6) k/uL RBC 3.56 L (3.80-5.40) m/uL Hgb 10.5 L D (11.4-16.0) gm/dL Hct 31.5 L (34.0-46.0) % MCV 88.6 (80.0-100.0) fL MCH 29.5 (25.0-35.0) pg MCHC 33.3 (31.0-37.0) g/dL RDW 17.4 H (11.5-15.5) % Plt Count 386 (150-450) k/uL Neutrophils % 82 % Lymphocytes % 12 % Monocytes % 4 % Eosinophils % 0 % Basophils % 0 % Neutrophils # 9.5 H (1.3-7.7) k/uL Lymphocytes # 1.4 (1.0-4.8) k/uL Monocytes # 0.5 (0-1.0) k/uL Eosinophils # 0.0 (0-0.7) k/uL Basophils # 0.0 (0-0.2) k/uL Anisocytosis Slight PT (9.0-12.0) sec INR (<1.2) APTT (22.0-30.0) sec Sodium 136 L (137-145) mmol/L Potassium 4.2 (3.5-5.1) mmol/L Chloride 105 (98-107) mmol/L Carbon Dioxide 23 (22-30) mmol/L Anion Gap 8 mmol/L BUN 22 H (7-17) mg/dL Creatinine 0.39 L (0.52-1.04) mg/dL Est GFR (CKD-EPI)AfAm >90 (>60 ml/min/1.73 sqM) Est GFR (CKD-EPI)NonAf >90 (>60 ml/min/1.73 sqM) Glucose 170 H (74-99) mg/dL Calcium 8.2 L (8.4-10.2) mg/dL Total Bilirubin 0.8 (0.2-1.3) mg/dL AST 32 (14-36) U/L ALT 44 (9-52) U/L Alkaline Phosphatase 64 (38-126) U/L Total Creatine Kinase 67 (30-135) U/L CK-MB (CK-2) 1.7 (0.0-2.4) ng/mL CK-MB (CK-2) Rel Index 2.5 Troponin I <0.012 (0.000-0.034) ng/mL Total Protein 5.8 L (6.3-8.2) g/dL Albumin 3.2 L (3.5-5.0) g/dL Urine Color Urine Appearance (Clear) Urine pH (5.0-8.0) Ur Specific [place] (1.001-1.035) Urine Protein (Negative) Urine Glucose (UA) (Negative) Urine Ketones (Negative) Urine Blood (Negative) Urine Nitrite (Negative) Urine Bilirubin (Negative) Urine Urobilinogen (<2.0) mg/dL Ur Leukocyte Esterase (Negative) Urine RBC (0-5) /hpf Urine WBC (0-5) /hpf Ur Squamous Epith Cells (0-4) /hpf Calcium Oxalate Crystal (None) /hpf Urine Mucus (None) /hpf Blood Type Blood Type Recheck Antibody Screen Spec Expiration Date 11/24/18 11/24/18 11/24/18 Range/Units 02:00 02:00 02:32 WBC (3.8-10.6) k/uL RBC (3.80-5.40) m/uL Hgb (11.4-16.0) gm/dL Hct (34.0-46.0) % MCV (80.0-100.0) fL MCH (25.0-35.0) pg MCHC (31.0-37.0) g/dL RDW (11.5-15.5) % Plt Count (150-450) k/uL Neutrophils % % Lymphocytes % % Monocytes % % Eosinophils % % Basophils % % Neutrophils # (1.3-7.7) k/uL Lymphocytes # (1.0-4.8) k/uL Monocytes # (0-1.0) k/uL Eosinophils # (0-0.7) k/uL Basophils # (0-0.2) k/uL Anisocytosis PT (9.0-12.0) sec INR 0.9 (<1.2) APTT 22.1 (22.0-30.0) sec Sodium (137-145) mmol/L Potassium (3.5-5.1) mmol/L Chloride (98-107) mmol/L Carbon Dioxide (22-30) mmol/L Anion Gap mmol/L BUN (7-17) mg/dL Creatinine (0.52-1.04) mg/dL Est GFR (CKD-EPI)AfAm (>60 ml/min/1.73 sqM) Est GFR (CKD-EPI)NonAf (>60 ml/min/1.73 sqM) Glucose (74-99) mg/dL Calcium (8.4-10.2) mg/dL Total Bilirubin (0.2-1.3) mg/dL AST (14-36) U/L ALT (9-52) U/L Alkaline Phosphatase (38-126) U/L Total Creatine Kinase (30-135) U/L CK-MB (CK-2) (0.0-2.4) ng/mL CK-MB (CK-2) Rel Index Troponin I (0.000-0.034) ng/mL Total Protein (6.3-8.2) g/dL Albumin (3.5-5.0) g/dL Urine Color Yellow Urine Appearance Cloudy H (Clear) Urine pH 6.5 (5.0-8.0) Ur Specific [place] 1.023 (1.001-1.035) Urine Protein Trace H (Negative) Urine Glucose (UA) Trace H (Negative) Urine Ketones Negative (Negative) Urine Blood Negative (Negative) Urine Nitrite Negative (Negative) Urine Bilirubin Negative (Negative) Urine Urobilinogen 2.0 (<2.0) mg/dL Ur Leukocyte Esterase Moderate H (Negative) Urine RBC 2 (0-5) /hpf Urine WBC 24 H (0-5) /hpf Ur Squamous Epith Cells 5 H (0-4) /hpf Calcium Oxalate Crystal Moderate H (None) /hpf Urine Mucus Rare H (None) /hpf Blood Type O Positive Blood Type Recheck No Antibody Screen NEGATIVE Spec Expiration Date 11/27/2018 - 2299 - EKG Data -: EKG Interpreted by Nm EKG shows normal: sinus rhythm EKG Comments: EKG obtained at 1:46 AM, rate is 107 rhythm is sinus tachycardia there is normal axis normal intervals no acute ST elevations or depressions no evidence of acute ischemia or infarction Disposition Clinical Impression: Fall, Urinary tract infection Disposition: HOME SELF-CARE Instructions (If sedation given, give patient instructions): Fall Prevention for Older Adults (ED) Prescriptions: Nitrofurantoin Monohyd/M-Cryst [Macrobid] 100 mg PO Q12HR #10 cap Is patient prescribed a controlled substance at d/c from ED?: No Referrals: Zelalem Mejia DO [Primary Care Provider] - 1-2 days
[2018-11-24 02:53] LABS: Creatine Kinase MB 1.7 ng/mL (0.0-2.4); Troponin I <0.012 ng/mL (0.000-0.034)
--- NOTE | 2018-11-24 03:09 | CT ---
EXAM: CT Head Without Intravenous Contrast CLINICAL HISTORY: fall, right sided contusion TECHNIQUE: Axial computed tomography images of the head/brain without intravenous contrast. CTDI is 45.2 mGy and DLP is 1041 mGy-cm. This CT exam was performed using one or more of the following dose reduction techniques: automated exposure control, adjustment of the mA and/or kV according to patient size, and/or use of iterative reconstruction technique. COMPARISON: 11/11/2018 FINDINGS: Brain: Extensive deep white matter hypodense changes are similar to previous examination. Encephalomalacia involving the inferior right frontal region is similar in appearance. No hemorrhage. Midline shift: No midline shift. Ventricles: The ventricles remain prominent in size consistent with central atrophy. No interval enlargement is identified the transverse diameter of the anterior third ventricle stable in size measuring 12 mm. Bones/joints: A right frontal craniotomy is again noted. No acute fracture. Soft tissues: No appreciable significant overlying soft tissue abnormality is identified. Sinuses: There is some debris noted in the left sphenoid sinus. The paranasal sinuses are otherwise well-aerated. Mastoid air cells: Unremarkable as visualized. No mastoid effusion. IMPRESSION: No acute intracranial process with underlying chronic changes as noted above, stable from previous examination. EXAM: CT Cervical Spine Without Intravenous Contrast CLINICAL HISTORY: fall, right sided contusion TECHNIQUE: Axial computed tomography images of the cervical spine without intravenous contrast. CTDI is 9.7 mGy and DLP is 261.1 mGy-cm. This CT exam was performed using one or more of the following dose reduction techniques: automated exposure control, adjustment of the mA and/or kV according to patient size, and/or use of iterative reconstruction technique. COMPARISON: 11/11/2018 FINDINGS: Vertebrae: Unremarkable. No acute fracture. Discs/spinal canal/neural foramina: Disc space narrowing with marginal hypertrophic changes are most notable at C5-6 level but also suggested at C4-5 level. No significant alteration in appearance from previous exam. Soft tissues: Unremarkable. Lung apices: Stable presumed chronic changes involving the posterior medial aspect of the right apex. No significant traumatic injury involving the lung apices. IMPRESSION: No acute osseous traumatic injury or significant abnormal alignment of the cervical spine. No significant alteration from previous exam.
[2018-11-24 04:11] VITALS: BP 109/67; PULSE 106
[2018-11-24] MEDS ORDERED: NITROFURANTOIN MONOHYD/M-CRYST 100 MG CAP PO STA (04:13)
== END 2018-11-24 05:26 | disposition home or self-care (01) ==
LOC: EC 01:36
DX: N39.0 Urinary tract infection, site not specified (principal); S00.83XA Contusion of other part of head, initial encounter; R41.0 Disorientation, unspecified; R45.1 Restlessness and agitation; D69.2 Other nonthrombocytopenic purpura; J44.9 Chronic obstructive pulmonary disease, unspecified; Z79.51 Long term (current) use of inhaled steroids; Z79.82 Long term (current) use of aspirin; Z79.899 Other long term (current) drug therapy; Z91.041 Radiographic dye allergy status; Z85.118 Personal history of other malignant neoplasm of bronchus and lung; Z85.850 Personal history of malignant neoplasm of thyroid; Z86.73 Personal history of transient ischemic attack (TIA), and cerebral infarction without residual deficits; W18.09XA Striking against other object with subsequent fall, initial encounter
CPT/HCPCS: 36415; 70450; 71045; 72125; 72170; 80053; 81001; 82550; 82553; 84484; 85025; 85610; 85730; 86850; 86900; 86901; 87077; 87086; 87186; 99285

== ENCOUNTER 2019-01-25 02:53 | Emergency (ER) | payer BC ==
--- NOTE | 2019-01-25 03:05 | ED ---
SOB HPI - General Stated Complaint: MCKAY Time Seen by Provider: 01/25/19 02:59 - History of Present Illness Initial Comments: Alfreda is a very ill 58 yo female with PMH of CVA with paralysis and cognitive delay who presents to the ED today via EMS for evaluation of respiratory distres per EMS they were dispatched to the patient's half-way facility for evaluation of respiratory distress, and nursing staff there reported that she was fine earlier in the day but throughout the evening developed progressively worsening shortness of breath. Upon their arrival patient was pale, diaphoretic oxygen saturation was in the low 80s on nasal cannula. Patient was noted to be profound and tachycardic with a heart rate in the 140s. She was placed on a n onrebreather mask and given a DuoNeb as well as an albuterol treatment in route to the hospital. Oxygen saturation state improve cover her heart rate remained elevated. Patient can answer yes and no questions, she denies any pain. - Related Data Home Medications Medication Instructions Recorded Confirmed Aspirin [Adult Low Dose Aspirin EC] 81 mg PO DAILY 02/08/17 02/21/18 Calcium Carbonate [Tums] 500 mg PO TID PRN 06/24/17 02/21/18 Cyanocobalamin (Vitamin B-12) 1,000 mcg PO DAILY 06/24/17 02/21/18 [Vitamin B-12] Albuterol Sulfate [Proair Hfa] 1 - 2 puff INHALATION RT-Q6H PRN 07/26/17 02/21/18 Fluticasone/Vilanterol [Breo 1 inhalation INHALATION RT-DAILY 07/26/17 02/21/18 Ellipta 200-25 Mcg INH] Ipratropium/Albuterol Sulfate 1 puff INHALATION RT-QID 07/26/17 02/21/18 [Combivent Respimat Inhaler] Previous Rx's Medication Instructions Recorded Calcium Carb-Vit D 500Mg-200Un 2 each PO TID-W/MEALS #90 tab 08/07/17 [Oscal 500+D] Nitrofurantoin Monohyd/M-Cryst 100 mg PO Q12HR #10 cap 11/24/18 [Macrobid] Allergies Allergy/AdvReac Type Severity Reaction Status Date / Time Iodinated Contrast- Oral and Allergy Rash/Hives Verified 01/25/19 03:20 IV Dye pet scan dye Allergy FACE AND Uncoded 01/25/19 03:20 HEAD SWELLING AND HIVES Review of Systems ROS Statement: Those systems with pertinent positive or pertinent negative responses have been documented in the HPI. ROS Other: All systems not noted in ROS Statement are negative. Limitations: ROS unobtainable due to patients medical condition (Patient mentation) Past Medical History Past Medical History: Cancer, COPD, CVA/TIA, GERD/Reflux Additional Past Medical History / Comment(s): Lung CA, CA THYROID. TIA 07/2017. VARICOSE VEINS. 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 EXC CATARACTS. LYMPH NODE BIOPSY. Thyroidectomy 08-06-2017 Past Anesthesia/Blood Transfusion Reactions: No Reported Reaction Past Psychological History: No Psychological Hx Reported Past Alcohol Use History: None Reported, Unable to Obtain Past Drug Use History: None Reported, Unable to Obtain - Past Family History Mother Family Medical History: Cancer Father Family Medical History: Cancer Brother(s) Family Medical History: Cancer Sister(s) Family Medical History: Cancer Father Brother(s) Family Medical History: Cancer Mother Sister(s) Family Medical History: Cancer General Exam - General Exam Comments Initial Comments: Physical Exam GENERAL: Chronically ill-appearing, appears much older than stated age, chronically debilitated HENT: Normocephalic, Atraumatic. EYES: PERRL, EOMI PULMONARY: Crackles in all lung winn on the right, wheezes and crackles on the left less pronounced Tachypnea, moderate respiratory distress CARDIOVASCULAR: Tachycardic, regular ABDOMEN: Soft and nontender with normal bowel sounds. SKIN: Lower extremities are mottled : Deferred NEUROLOGIC: Awake, alert, slurred speech MUSCULOSKELETAL: Generalized muscle atrophy PSYCHIATRIC: Unable to assess Limitations: no limitations Course Vital Signs 01/25/19 01/25/19 01/25/19 03:10 03:43 04:48 Temperature 97.9 F Pulse Rate 142 H 144 H 137 H Respiratory 36 H 33 H 26 H Rate Blood Pressure 142/75 132/83 104/88 O2 Sat by Pulse 98 97 95 Oximetry 01/25/19 01/25/19 01/25/19 05:05 05:07 05:12 Temperature Pulse Rate 131 H 121 H 116 H Respiratory 28 H 24 Rate Blood Pressure 120/85 116/77 123/79 O2 Sat by Pulse 95 96 Oximetry 01/25/19 01/25/19 01/25/19 05:15 05:36 05:54 Temperature 98.2 F Pulse Rate 111 H 113 H 118 H Respiratory 24 22 Rate Blood Pressure 128/86 133/86 O2 Sat by Pulse 95 96 Oximetry 01/25/19 06:41 Temperature 98.5 F Pulse Rate 125 H Respiratory 22 Rate Blood Pressure 126/83 O2 Sat by Pulse 95 Oximetry Medical Decision Making - Medical Decision Making The patient was seen and evaluated immediately upon arrival to the emergency department the patient was noted to be tachycardic, tachypneic with increased work of breathing. A full sepsis workup was initiated and patient was placed on BiPAP to support her respiratory effort. Review of the patient's medical record does reveal that she has been DO NOT RESUSCITATE in the past and would not want resuscitative efforts. However patient is agreeable to IV, x-rays and BiPAP. Patient's oxygenation improved on BiPAP however she remained very anxious with tachycardia and very uncomfortable ordered BiPAP was removed her oxygenation remained stable with nasal cannula and her heart rate improved she was given Lopressor for tachycardia. Labs were reviewed mother no significant changes from baseline x-ray with no significant changes from baseline Patient getting agitated, her brother bedside states that he feels that she is feeling much better because she is much more interactive and agitated. He states that they do plan to enroll in hospice on Saturday they're meeting with hospice at [facility]. At this time they would prefer the patient be discharged back to [facility] because she seems to be more relaxed to their he gets very agitated during admissions. Patient is agreeable to this plan. I did contact [facility] and advised them that she needs supplemental oxygenation. I did put in her discharge statement that she will need supplemental oxygen. They are agreeable to plan for discharge back there and enroll him into hospice as planned on Saturday. - Lab Data Result diagrams: 01/25/19 04:20 01/25/19 04:20 Lab Results 01/25/19 01/25/19 01/25/19 Range/Units 04:20 04:20 04:20 WBC 12.2 H (3.8-10.6) k/uL RBC 4.15 (3.80-5.40) m/uL Hgb 11.7 (11.4-16.0) gm/dL Hct 37.8 (34.0-46.0) % MCV 91.0 (80.0-100.0) fL MCH 28.2 (25.0-35.0) pg MCHC 30.9 L (31.0-37.0) g/dL RDW 15.6 H (11.5-15.5) % Plt Count 237 (150-450) k/uL Neutrophils % (Manual) 71 % Band Neutrophils % 18 % Lymphocytes % (Manual) 9 % Monocytes % (Manual) 1 % Metamyelocytes % 1 % Myelocytes % 1 % Neutrophils # (Manual) 10.80 H (1.3-7.7) k/uL Lymphocytes # (Manual) 1.10 (1.0-4.8) k/uL Monocytes # (Manual) 0.12 (0-1.0) k/uL Metamyelocytes # (Man) 0.12 H (0) k/uL Myelocytes # (Manual) 0.12 H (0) k/uL Nucleated RBCs 3 H (0-0) /100 WBC Manual Slide Review Performed Large Platelets Present Polychromasia Present Hypochromasia Moderate Poikilocytosis (manual Present Anisocytosis (manual) Present PT 10.2 (9.0-12.0) sec INR 0.9 (<1.2) APTT 20.0 L (22.0-30.0) sec Sodium 139 (137-145) mmol/L Potassium 4.3 (3.5-5.1) mmol/L Chloride 113 H (98-107) mmol/L Carbon Dioxide 15 L (22-30) mmol/L Anion Gap 11 mmol/L BUN 54 H (7-17) mg/dL Creatinine 0.27 L (0.52-1.04) mg/dL Est GFR (CKD-EPI)AfAm >90 (>60 ml/min/1.73 sqM) Est GFR (CKD-EPI)NonAf >90 (>60 ml/min/1.73 sqM) Glucose 287 H (74-99) mg/dL Plasma Lactic Acid Jorge (0.7-2.0) mmol/L Calcium 8.5 (8.4-10.2) mg/dL Total Bilirubin 0.5 (0.2-1.3) mg/dL AST 29 (14-36) U/L ALT 54 H (9-52) U/L Alkaline Phosphatase 73 (38-126) U/L Troponin I (0.000-0.034) ng/mL Total Protein 5.3 L (6.3-8.2) g/dL Albumin 2.9 L (3.5-5.0) g/dL Urine Color Urine Appearance (Clear) Urine pH (5.0-8.0) Ur Specific Ledbetter (1.001-1.035) Urine Protein (Negative) Urine Glucose (UA) (Negative) Urine Ketones (Negative) Urine Blood (Negative) Urine Nitrite (Negative) Urine Bilirubin (Negative) Urine Urobilinogen (<2.0) mg/dL Ur Leukocyte Esterase (Negative) Urine RBC (0-5) /hpf Urine WBC (0-5) /hpf Ur Squamous Epith Cells (0-4) /hpf Hyaline Casts (0-2) /lpf Urine Mucus (None) /hpf Influenza Type A RNA (Not Detectd) Influenza Type B (PCR) (Not Detectd) 01/25/19 01/25/19 01/25/19 Range/Units 04:20 04:20 04:40 WBC (3.8-10.6) k/uL RBC (3.80-5.40) m/uL Hgb (11.4-16.0) gm/dL Hct (34.0-46.0) % MCV (80.0-100.0) fL MCH (25.0-35.0) pg MCHC (31.0-37.0) g/dL RDW (11.5-15.5) % Plt Count (150-450) k/uL Neutrophils % (Manual) % Band Neutrophils % % Lymphocytes % (Manual) % Monocytes % (Manual) % Metamyelocytes % % Myelocytes % % Neutrophils # (Manual) (1.3-7.7) k/uL Lymphocytes # (Manual) (1.0-4.8) k/uL Monocytes # (Manual) (0-1.0) k/uL Metamyelocytes # (Man) (0) k/uL Myelocytes # (Manual) (0) k/uL Nucleated RBCs (0-0) /100 WBC Manual Slide Review Large Platelets Polychromasia Hypochromasia Poikilocytosis (manual Anisocytosis (manual) PT (9.0-12.0) sec INR (<1.2) APTT (22.0-30.0) sec Sodium (137-145) mmol/L Potassium (3.5-5.1) mmol/L Chloride (98-107) mmol/L Carbon Dioxide (22-30) mmol/L Anion Gap mmol/L BUN (7-17) mg/dL Creatinine (0.52-1.04) mg/dL Est GFR (CKD-EPI)AfAm (>60 ml/min/1.73 sqM) Est GFR (CKD-EPI)NonAf (>60 ml/min/1.73 sqM) Glucose (74-99) mg/dL Plasma Lactic Acid Jorge 2.0 (0.7-2.0) mmol/L Calcium (8.4-10.2) mg/dL Total Bilirubin (0.2-1.3) mg/dL AST (14-36) U/L ALT (9-52) U/L Alkaline Phosphatase (38-126) U/L Troponin I 0.025 (0.000-0.034) ng/mL Total Protein (6.3-8.2) g/dL Albumin (3.5-5.0) g/dL Urine Color Urine Appearance (Clear) Urine pH (5.0-8.0) Ur Specific Ledbetter (1.001-1.035) Urine Protein (Negative) Urine Glucose (UA) (Negative) Urine Ketones (Negative) Urine Blood (Negative) Urine Nitrite (Negative) Urine Bilirubin (Negative) Urine Urobilinogen (<2.0) mg/dL Ur Leukocyte Esterase (Negative) Urine RBC (0-5) /hpf Urine WBC (0-5) /hpf Ur Squamous Epith Cells (0-4) /hpf Hyaline Casts (0-2) /lpf Urine Mucus (None) /hpf Influenza Type A RNA Not Detected (Not Detectd) Influenza Type B (PCR) Not Detected (Not Detectd) 01/25/19 Range/Units 04:40 WBC (3.8-10.6) k/uL RBC (3.80-5.40) m/uL Hgb (11.4-16.0) gm/dL Hct (34.0-46.0) % MCV (80.0-100.0) fL MCH (25.0-35.0) pg MCHC (31.0-37.0) g/dL RDW (11.5-15.5) % Plt Count (150-450) k/uL Neutrophils % (Manual) % Band Neutrophils % % Lymphocytes % (Manual) % Monocytes % (Manual) % Metamyelocytes % % Myelocytes % % Neutrophils # (Manual) (1.3-7.7) k/uL Lymphocytes # (Manual) (1.0-4.8) k/uL Monocytes # (Manual) (0-1.0) k/uL Metamyelocytes # (Man) (0) k/uL Myelocytes # (Manual) (0) k/uL Nucleated RBCs (0-0) /100 WBC Manual Slide Review Large Platelets Polychromasia Hypochromasia Poikilocytosis (manual Anisocytosis (manual) PT (9.0-12.0) sec INR (<1.2) APTT (22.0-30.0) sec Sodium (137-145) mmol/L Potassium (3.5-5.1) mmol/L Chloride (98-107) mmol/L Carbon Dioxide (22-30) mmol/L Anion Gap mmol/L BUN (7-17) mg/dL Creatinine (0.52-1.04) mg/dL Est GFR (CKD-EPI)AfAm (>60 ml/min/1.73 sqM) Est GFR (CKD-EPI)NonAf (>60 ml/min/1.73 sqM) Glucose (74-99) mg/dL Plasma Lactic Acid Jorge (0.7-2.0) mmol/L Calcium (8.4-10.2) mg/dL Total Bilirubin (0.2-1.3) mg/dL AST (14-36) U/L ALT (9-52) U/L Alkaline Phosphatase (38-126) U/L Troponin I (0.000-0.034) ng/mL Total Protein (6.3-8.2) g/dL Albumin (3.5-5.0) g/dL Urine Color Yellow Urine Appearance Clear (Clear) Urine pH 6.0 (5.0-8.0) Ur Specific Ledbetter 1.030 (1.001-1.035) Urine Protein 1+ H (Negative) Urine Glucose (UA) 4+ H (Negative) Urine Ketones 1+ H (Negative) Urine Blood Negative (Negative) Urine Nitrite Negative (Negative) Urine Bilirubin Negative (Negative) Urine Urobilinogen <2.0 (<2.0) mg/dL Ur Leukocyte Esterase Negative (Negative) Urine RBC <1 (0-5) /hpf Urine WBC <1 (0-5) /hpf Ur Squamous Epith Cells <1 (0-4) /hpf Hyaline Casts 4 H (0-2) /lpf Urine Mucus Rare H (None) /hpf Influenza Type A RNA (Not Detectd) Influenza Type B (PCR) (Not Detectd) Disposition Clinical Impression: Lung mass Disposition: HOME SELF-CARE Condition: Poor Instructions (If sedation given, give patient instructions): Bronchospasm (ED) Additional Instructions: Patient should be treated with oxygen supplementation as needed. Patient should have 0.5-4L as needed to keep oxygen saturation >92% Is patient prescribed a controlled substance at d/c from ED?: No Referrals: Zelalem Mejia DO [Primary Care Provider] - 1-2 days
--- NOTE | 2019-01-25 04:07 | XR ---
EXAM: XR Chest, 1 View CLINICAL HISTORY: ITS.REASON XR Reason: Fever, MCKAY TECHNIQUE: Frontal view of the chest. COMPARISON: Chest x-ray 11/24/18. CT 10/16/18. FINDINGS: Streaky opacities suggestive of atelectasis and/or scar. More confluent opacity in the right hilar/infrahilar region with some suspected extension of opacity into the right lower lobe. Allowing for differences in technique, no significant interval change in this finding compared to the previous chest x-ray. Previous CT demonstrated similar-appearing opacity. Patient has a history of lung cancer. Disease progression from the previous CT difficult to exclude given differences in modality. Some findings likely represent posttreatment change. Could follow up non-emergently with PET/CT, as indicated. Pulmonary nodules seen on the prior chest CT may be present but not well visualized by chest x-ray. IMPRESSION: No significant interval change compared to previous chest x-ray allowing for differences in technique. Atelectasis and/or scar. Masslike opacity in the right perihilar/infrahilar region. See above discussion and recommendations.
[2019-01-25 04:37] LABS: HCT 37.8 % (34.0-46.0); HGB 11.7 gm/dL (11.4-16.0); Hypochromasia Moderate; MCH 28.2 pg (25.0-35.0); MCHC 30.9 g/dL (31.0-37.0); Mean Platelet Volume 7.9; Platelet Count 237 k/uL (150-450); RBC 4.15 m/uL (3.80-5.40); RDW 15.6 % (11.5-15.5)
[2019-01-25] MEDS: SODIUM CHLORIDE 0.9% 500 ML 500 ML IV SCH ×2 (04:48→05:14)
[2019-01-25 04:56] LABS: INR 0.9 (<1.2); Prothrombin Time 10.2 sec (9.0-12.0)
[2019-01-25 04:57] LABS: ALT 54 U/L (9-52); AST 29 U/L (14-36); Albumin 2.9 g/dL (3.5-5.0); Alkaline Phosphatase 73 U/L (38-126); Anion Gap 11 mmol/L; Blood Urea Nitrogen 54 mg/dL (7-17); Calcium 8.5 mg/dL (8.4-10.2); Carbon Dioxide 15 mmol/L (22-30); Chloride 113 mmol/L (98-107); Glucose 287 mg/dL (74-99); Potassium 4.3 mmol/L (3.5-5.1); Sodium 139 mmol/L (137-145); Total Bilirubin 0.5 mg/dL (0.2-1.3); Total Protein 5.3 g/dL (6.3-8.2)
[2019-01-25] MEDS: METOPROLOL TARTRATE 5 MG/5 ML VIAL IVP SCH ×3 (05:04→06:44)
[2019-01-25 05:37] LABS: Appearance,Urine Clear (Clear); Bilirubin,Urine Negative (Negative); Blood,Urine Negative (Negative); Color,Urine Yellow; Glucose,Urine (UA) 4+ (Negative); Hyaline Casts,Urine 4 /lpf (0-2); Ketones,Urine 1+ (Negative); Leukocyte Esterase,Urine Negative (Negative); Mucus,Urine Rare /hpf; Nitrite,Urine Negative (Negative); Protein,Urine 1+ (Negative); RBC,Urine <1 /hpf (0-5); Squamous Epithelial Cell,Urine <1 /hpf (0-4); Urobilinogen,Urine <2.0 mg/dL (<2.0); WBC,Urine <1 /hpf (0-5)
[2019-01-25 06:00] LABS: Band Neutrophils % 18 %; Metamyelocytes # (M) 0.12 k/uL (0); Metamyelocytes % 1 %; Monocytes # (M) 0.12 k/uL (0-1.0); Myelocytes # (M) 0.12 k/uL (0); Myelocytes % 1 %; Neutrophils % (M) 71 %; Nucleated Red Blood Cells 3 /100 WBC (0-0); Polychromasia Present; Total Cells Counted 200; WBC 12.2 k/uL (3.8-10.6)
[2019-01-25 06:04] LABS: Anisocytosis (M) Present
[2019-01-25 06:07] LABS: Large Platelets Present; Poikilocytosis (M) Present
[2019-01-25 06:42] VITALS: TEMP 98.5
[2019-01-25 06:51] VITALS: BP 133/87; PULSE 112; RESP 20
== END 2019-01-25 07:00 | disposition home or self-care (01) ==
LOC: EC 02:53
DX: R91.8 Other nonspecific abnormal finding of lung field (principal); R06.02 Shortness of breath; R00.0 Tachycardia, unspecified; R45.1 Restlessness and agitation; R47.81 Slurred speech; M62.50 Muscle wasting and atrophy, not elsewhere classified, unspecified site; J44.9 Chronic obstructive pulmonary disease, unspecified; K21.9 Gastro-esophageal reflux disease without esophagitis; Z86.73 Personal history of transient ischemic attack (TIA), and cerebral infarction without residual deficits; Z85.850 Personal history of malignant neoplasm of thyroid; Z85.118 Personal history of other malignant neoplasm of bronchus and lung; Z79.51 Long term (current) use of inhaled steroids; Z79.82 Long term (current) use of aspirin; Z79.899 Other long term (current) drug therapy; Z91.041 Radiographic dye allergy status
CPT/HCPCS: 36415; 71045; 80053; 81001; 83605; 84484; 85025; 85610; 85730; 87040; 87086; 87502; 93005; 94660; 96361; 96374; 99285